=== PATIENT | male | born 1950 | race Caucasian/White ===

== ENCOUNTER 2016-04-21 10:44 | Emergency (ER) ==
[2016-04-21] MEDS ORDERED: ASPIRIN PO STA (10:53)
[2016-04-21 11:19] LABS: MANUAL DIFF NEEDED? NO
[2016-04-21 11:30] LABS: BASO% 0.3 % (0.0-0.8); EOS# 0.04 X1000 (0.0-0.7); EOS% 0.6 % (0.0-10.0); HEMATOCRIT 49.8 % (42.0-52.0); HEMOGLOBIN 17.3 g/dL (14.0-18.0); LYMPH# 1.12 X1000 (1.2-3.4); LYMPH% 15.8 % (20.5-51.1); MCH 31.2 PG (27-31); MCHC 34.7 g/dL (33-37); MCV 89.9 FL (81-99); MONO# 0.64 X1000 (0.11-0.59); MPV 9.3 FL (7.4-10.4); NEUT% 74.3 % (42.2-75.2); PLT 199 X1000 (130-400); RBC 5.54 XMIL (4.7-6.1)
--- NOTE | 2016-04-21 11:32 | ED EKG INTERP ---
EKG Interpretation - EKG Time of EKG reading by physician:: 11:04 EKG Read and Signed by:: Angelica Pierson EKG Interpretation (*Must complete 3 of following elements*): Abnormal Rate: 84 Rhythm: NSR [place]: left CT Interval: normal ST Wave: non-specific ST changes
--- NOTE | 2016-04-21 11:41 | EKG Report ---
Test Performed on : 04/21/2016 11:04:00 AM Test Reason : Chest Pain Blood Pressure : / mmHG Vent. Rate : 084 BPM Atrial Rate : 084 BPM P-R Int : 160 ms QRS Dur : 098 ms QT Int : 360 ms P-R-T Axes : 064 -56 051 degrees QTc Int : 425 ms Normal sinus rhythm. Left axis deviation Inferior infarct , age undetermined Abnormal ECG No previous ECGs available Unconfirmed Result
[2016-04-21 11:56] LABS: AGAP 17; ALBUMIN 4.5 g/dL (3.5-5.0); ALKALINE PHOSPHATASE 74 U/L (32-122); BUN 9 mg/dL (8-22); CALCIUM 9.5 mg/dL (8.8-10.2); CHLORIDE 99 mmol/L (98-107); CK PROFILE 141 U/L (24-204); COSMO 276; GOT 28 U/L (10-34); GPT 22 U/L (10-44); MAGNESIUM 2.2 mg/dL (1.5-2.7); POTASSIUM 4.3 mmol/L (3.5-5.1); SODIUM 138 mmol/L (136-145); TCO2 22 mmol/L (25-35); TOTAL BILIRUBIN 0.29 mg/dL (0.20-1.00); TOTAL PROTEIN 7.4 g/dL (6.3-8.3)
--- NOTE | 2016-04-21 12:01 | Diag Imaging Result Document ---
PROCEDURE NAME: CHEST-2 VIEWS - 04/21/2016 PA AND LATERAL CHEST: COMPARISON: There are no previous studies. FINDINGS: There are granulomata present in both upper lobes. The heart size and pulmonary vascularity are within normal limits. IMPRESSION: No acute disease.
[2016-04-21 12:09] LABS: INR 1.07; PROTIME 11.3 Seconds (9.2-11.7); PTT 26.1 Seconds (22.0-36.0)
--- NOTE | 2016-04-21 13:43 | PROVIDER DOCUMENTATION ---
HPI-Chest Pain - General Chief Complaint: Chest Pain Stated Complaint: CP Time Seen by Provider: 04/21/16 13:19 Source: patient Allergies/Adverse Reactions: Patient Allergies Allergy/AdvReac Type Severity Reaction Status Date / Time No Known Allergies Allergy Verified 04/21/16 13:38 Home Medications: No Home Medications 04/21/16 - History of Present Illness-CP Nature of Presenting Problem: patient is a 65 y/o M that presents to the Er with a few days of intermitted chest pain. he felt as if he had indigestion. patient today had chest pain that radiates to neck. No history of cardiac, denies shortness of breath, n/v, or cough. Location: reports: substernal Chest Pain Radiation: reports: neck Quality of Pain: reports: tightness Severity in ED: mild Onset/Duration: abrupt, 2 days ago, 3 days ago Timing: gone now Context/Activities at Onset: reports: none Modifying Factors: improves with: nothing Associated Symptoms: denies: back pain, diaphoresis, nausea, shortness of breath , vomiting Nitro Today/Relief: no nitro taken today Aspirin Treatment Today: 325 mg x 1, provided by ED Prior Chest Pain/Cardiac Workup: reports: no prior chest pain Similar Symptoms Previously?: No Recently Seen Here or By Another Healthcare Provider: No Review of Systems - Adult - REVIEW OF SYSTEMS - ADULT Constitutional: denies: chills, fever Eyes: reports: no symptoms reported Ears, Nose, Mouth & Throat: denies: ear discharge, ear pain, sinus problem, throat pain, throat swelling Cardiovascular: reports: chest pain. denies: palpitations, syncope Respiratory: denies: cough, shortness of breath, wheezing Gastrointestinal: denies: abdominal pain, diarrhea, nausea, vomiting Genitourinary: reports: no symptoms reported Musculoskeletal: reports: neck pain. denies: back pain, joint pain Integumentary: reports: no symptoms reported Neurological: reports: no symptoms reported Psychiatric: reports: no symptoms reported Endocrine: reports: no symptoms reported Hematologic/Lymphatic: reports: no symptoms reported Allergic/Immunologic: reports: no symptoms reported All Other Systems: Reviewed and Negative Past History - Adult - PAST MEDICAL HISTORY-ADULT Review of Records: reports: Old Records Reviewed, Nursing Assessment Review, Medications Reviewed - PRIOR SURGERIES/PROCEDURES Surgical/Procedure History: reports: reviewed, not pertinent - IMMUNIZATION STATUS Childhood Immunizations: See Nurse Assessment Flu Vaccine: See Nurse Assessment - FAMILY HISTORY Family History: reviewed, not pertinent - SOCIAL HISTORY Smoking: chew Living Situation: family Physical Exam-General - PHYSICAL EXAM-ADULT Initial Vital Signs Reviewed: Yes - CONSTITUTIONAL General Appearance: alert, no apparent distress - EYES Eyes: PERRL/EOMI, pink conjunctivae - HEAD, EARS, NOSE, MOUTH & THROAT HENMT: normocephalic/atraumatic, moist mucous membranes, normal ENT inspection, pharynx normal - NECK Neck: full range of motion, normal inspection. negative: lymphadenopathy - RESPIRATORY Respiratory: lungs clear, normal breath sounds, no respiratory distress, no accessory muscle use - CARDIOVASCULAR Cardiovascular: regular rate, rhythm, no edema, no gallop, no murmur - GASTROINTESTINAL (ABDOMEN) Abdominal Exam: normal bowel sounds, non tender, soft, no organomegaly, no pulsatile mass - MUSCULOSKELETAL Back Exam: normal inspection, no vertebral tenderness Extremity: normal range of motion, non-tender, normal inspection, no pedal edema , no calf tenderness, normal capillary refill, pelvis stable - SKIN Integumentary: normal color, warm/dry - NEUROLOGIC Neurologic: grossly normal, no motor/sensory deficits - PSYCHIATRIC Psych/Mental Status: normal mood/affect, normal thought content, normal thought process, oriented x 3 Progress - PLAN OF CARE/RESULTS Progress/Plan/Lab Results: plan of care-cardiac work up with second set Vital Signs Temp Pulse Resp BP Pulse Ox 04/21/16 13:39 77 16 158/108 100 04/21/16 10:50 97.5 F L 94 H 16 142/97 99 No Known Allergies Allergy (Verified 04/21/16 13:38) No Home Medications 04/21/16 Laboratory 04/21/16 04/21/16 04/21/16 13:54 13:54 11:17 WBC RBC Hgb Hct MCV MCH MCHC RDW Std Deviation Plt Count MPV Neut % (Auto) Lymph % (Auto) [place] % (Auto) Eos % (Auto) Baso % (Auto) Neut # (Auto) Lymph # (Auto) [place] # (Auto) Eos # (Auto) Baso # (Auto) PT INR PTT (Actin FS) D-Dimer Sodium Potassium Chloride Carbon Dioxide Anion Gap BUN Creatinine Estimated GFR/1.73 m2 BUN/Creatinine Ratio Glucose Calculated Osmolality Calcium Magnesium Total Bilirubin AST ALT Alkaline Phosphatase Creatine Kinase 136 Troponin T < 0.010 < 0.010 Wfc-A-Regywofulxv Pept Total Protein Albumin Globulin Albumin/Globulin Ratio 04/21/16 04/21/16 04/21/16 11:17 11:17 11:17 WBC RBC Hgb Hct MCV MCH MCHC RDW Std Deviation Plt Count MPV Neut % (Auto) Lymph % (Auto) [place] % (Auto) Eos % (Auto) Baso % (Auto) Neut # (Auto) Lymph # (Auto) [place] # (Auto) Eos # (Auto) Baso # (Auto) PT 11.3 INR 1.07 PTT (Actin FS) 26.1 D-Dimer 0.22 Sodium Potassium Chloride Carbon Dioxide Anion Gap BUN Creatinine Estimated GFR/1.73 m2 BUN/Creatinine Ratio Glucose Calculated Osmolality Calcium Magnesium Total Bilirubin AST ALT Alkaline Phosphatase Creatine Kinase Troponin T Iti-P-Uivplmoaltf Pept 29 Total Protein Albumin Globulin Albumin/Globulin Ratio 04/21/16 04/21/16 11:17 11:17 WBC 7.08 RBC 5.54 Hgb 17.3 Hct 49.8 MCV 89.9 MCH 31.2 H MCHC 34.7 RDW Std Deviation 14.0 Plt Count 199 MPV 9.3 Neut % (Auto) 74.3 Lymph % (Auto) 15.8 L [place] % (Auto) 9.0 Eos % (Auto) 0.6 Baso % (Auto) 0.3 Neut # (Auto) 5.26 Lymph # (Auto) 1.12 L [place] # (Auto) 0.64 H Eos # (Auto) 0.04 Baso # (Auto) 0.02 PT INR PTT (Actin FS) D-Dimer Sodium 138 Potassium 4.3 Chloride 99 Carbon Dioxide 22 L Anion Gap 17 BUN 9 Creatinine 0.9 Estimated GFR/1.73 m2 > 60 BUN/Creatinine Ratio 10 Glucose 119 H Calculated Osmolality 276 Calcium 9.5 Magnesium 2.2 Total Bilirubin 0.29 AST 28 ALT 22 Alkaline Phosphatase 74 Creatine Kinase 141 Troponin T Zqb-K-Dvkytvhbyew Pept Total Protein 7.4 Albumin 4.5 Globulin 2.9 Albumin/Globulin Ratio 1.6 Orders Category Date Time Status Cardiac Monitoring DIRECTED Care 04/21/16 10:53 Active Saline Loc NOW Care 04/21/16 10:53 Active CHEST-2 VIEWS [RAD] Stat Exams 04/21/16 10:53 Completed CBC WITH ELECTRONIC DIFF [HEME] Stat Lab 04/21/16 11:17 Completed CK PROFILE [SP CHEM] Stat Lab 04/21/16 11:17 Completed CK PROFILE [SP CHEM] Stat Lab 04/21/16 13:54 Completed COMPREHENSIVE METABOLIC PANEL [CHEM] Stat Lab 04/21/16 11:17 Completed D-DIMER [CHEM] Stat Lab 04/21/16 11:17 Completed MAGNESIUM [CHEM] Stat Lab 04/21/16 11:17 Completed PRO B-NATRIURETIC PEPTIDE Stat Lab 04/21/16 11:17 Completed PROTIME WITH INR [COAG] Stat Lab 04/21/16 11:17 Completed PTT [COAG] Stat Lab 04/21/16 11:17 Completed TROPONIN T Stat Lab 04/21/16 11:17 Completed TROPONIN T Stat Lab 04/21/16 13:54 Completed Aspirin Med 04/21/16 10:53 Discontinued 325 mg PO STAT STA EKG [EKG] Stat Ther 04/21/16 10:53 Draft EKG [EKG] Stat Ther 04/21/16 13:44 Draft pt will be d/c home f/u with pcp for outpatient work up, pt was clinically stable understood results and instructions. - EKG 2 Time of EKG reading by physician:: 13:51 EKG Read and Signed by:: Angelica Pierson EKG Interpretation (*Must complete 3 of following elements*): Abnormal Rate: 61 Rhythm: NSR [place]: left AR Interval: normal ST Wave: non-specific ST changes - XRAY 1 XRAY Study: Chest Impression: Normal XRAY Interpretation: nad Departure - Departure Time of Disposition Order: 15:02 DIAGNOSIS: Atypical chest pain Disposition: HOME 01 Certified Medical Emergency: Emergent Condition: Stable Additional Instructions: ED Follow Up Instructions: You have been treated by a care provider in the Emergency Department. These instructions are being provided to you so you can have an understanding of how to care for yourself upon discharge. Upon discharge from the Emergency Department, you are responsible for making arrangements for follow-up care by a physician of your choice. Take all prescribed medications as directed. Return to the Emergency Department immediately for any new or worsening symptoms. You may call the Physician Referral phone number at [phone] to obtain a list of Physicians who are taking new patients. Referrals: Olegario Weeks MD [Primary Care Provider] - (call this week for f/u) Instructions: Nonspecific Chest Pain Attestation - Scribe Verification/Attestation Scribe:: Randy Lyon Acting as Scribe for:: Angelica Pierson Scribe documention review:: This chart was documented by a scribe and accurately reflects the service the provider performed and the decisions made by the provider. Physician Attestation - Physician Attestation I, the provider, attest to the following statement:: Angelica Pierson Physician documentation Attestation:: This documentation recorded by the scribe accurately reflects the service I personally performed and the decisions made by me.
--- NOTE | 2016-04-21 14:11 | EKG Report ---
Test Performed on : 04/21/2016 1:51:29 PM Test Reason : CP Blood Pressure : / mmHG Vent. Rate : 061 BPM Atrial Rate : 061 BPM P-R Int : 158 ms QRS Dur : 094 ms QT Int : 422 ms P-R-T Axes : 053 -32 047 degrees QTc Int : 424 ms Normal sinus rhythm. Left axis deviation Inferior infarct (cited on or before 21-APR-2016) Abnormal ECG When compared with ECG of 21-APR-2016 11:04, (Unconfirmed) No significant change was found Unconfirmed Result
[2016-04-21 15:15] VITALS: BP 152/99
== END 2016-04-21 15:15 | disposition home or self-care (01) ==
LOC: ED 10:44
DX: R07.89 Other chest pain (principal); R94.31 Abnormal electrocardiogram [ECG] [EKG]; M54.2 Cervicalgia
CPT/HCPCS: 36415; 71020; 80053; 82550; 83735; 83880; 84484; 85025; 85379; 85610; 85730; 93005; 99284